=== PATIENT | female | born 1990 | race Caucasian/White ===

== ENCOUNTER 2016-12-24 23:07 | Emergency (ER) | payer OTHER ==
[~2016-12-24] VITALS: Ht 160 cm; Wt 101.5 kg
[~2016-12-24 23:07] MED LIST: DIABETA5 MG PO; IBUPROFEN800 MG PO; PRENATAL TABLE1 EAC3 PO; PROCTOFOAM-HC10 GM PR
[2016-12-25 00:22] LABS: HEMATOCRIT 39.9 % (36.0-46.0); MCHC 33.1 G/DL (30.0-36.0); MCV 87.7 FL (83-99); MEAN PLAT.VOLUME 8.4 uM^3 (9.5-12.4); PLATELET COUNT 333 K/uL (156-360); RBC DIS.WIDTH-CV 13.1 % (11.8-14.6); RBC DIS.WIDTH-SD 41.3 % (39-53); RED BLOOD COUNT 4.55 M/uL (3.80-5.20); WHITE BLOOD COUNT 14.5 K/uL (4.1-10.2)
[2016-12-25 00:33] LABS: CHLORIDE 104 mEq/L (99-109); POTASSIUM 3.7 mEq/L (3.7-5.4); SODIUM 138 mEq/L (136-147)
[2016-12-25 00:34] LABS: GLUCOSE 102 mg/dL (70-99)
[2016-12-25 00:36] LABS: ANION GAP 8 MEQ/L (2-14); TOTAL BILIRUBIN 0.3 mg/dL (0.0-1.0)
[2016-12-25 00:38] LABS: ALKALINE PHOSPHATASE 65 IU/L (3-129); GFR ESTIMATE (CALCULATED) > 59 mL/min/
[2016-12-25 00:39] LABS: UREA NITROGEN (BUN) 11 mg/dL (9-23)
[2016-12-25 00:48] LABS: QUANTITATIVE HCG < 4.0 MIU/ML
[2016-12-25 01:58] LABS: C-REACTIVE PROTEIN 8.9 MG/L (0-10)
[2016-12-25] MEDS ORDERED: ZOFRAN ODT4 MG PO (02:06)
[2016-12-25] MEDS ORDERED: FIORICET 50-301 EACH PO (02:06)
[2016-12-25 02:23] VITALS: BP 107/74
== END 2016-12-25 02:25 | disposition home or self-care (01) ==
LOC: EME 23:07
PROVIDERS: Physician Assistant
DX: R51 Headache (principal); R05 Cough; H53.149 Visual discomfort, unspecified; F17.200 Nicotine dependence, unspecified, uncomplicated
CPT/HCPCS: 70450; 80053; 84702; 85027; 85651; 86140; 99281; 99285; J1200; J2270; J2765; J7030